=== PATIENT | male | born 1995 | race African-American/Black ===

== ENCOUNTER 2022-12-23 11:52 | Emergency (ER) | payer MEDICAID ==
[~2022-12-23] VITALS: Ht 175.3 cm; Wt 75.0 kg
[2022-12-23] MEDS ORDERED: KETOROLAC 60MG/2ML VIAL IM ONE (12:45)
[2022-12-23 12:58] VITALS: BP 130/98
[2022-12-23] MEDS ORDERED: CYCL10TA21 MT (13:06)
[2022-12-23] MEDS ORDERED: LIDO700A15 TP (13:06)
[2022-12-23] MEDS ORDERED: IBUP-2029 MT (13:06)
== END 2022-12-23 13:22 | disposition home or self-care (01) ==
LOC: ER 12:10
DX: M25.561 Pain in right knee (principal); V49.49XA Driver injured in collision with other motor vehicles in traffic accident, initial encounter; Y93.89 Activity, other specified; Y92.89 Other specified places as the place of occurrence of the external cause; Y99.8 Other external cause status; J45.909 Unspecified asthma, uncomplicated; Z79.899 Other long term (current) drug therapy
CPT/HCPCS: 96372; 99283; J1885; Z7610

== ENCOUNTER 2023-10-06 18:27 | Emergency (ER) | payer MEDICAID ==
[~2023-10-06] VITALS: Ht 177.8 cm; Wt 81.0 kg
[~2023-10-06 18:27] MED LIST: CYCL10TA21 MT; IBUP-2029 MT; LIDO700A15 TP
[2023-10-06 18:35] VITALS: O2SAT 100
[2023-10-06] MEDS ORDERED: FLUORESCEIN SODIUM 1MG/STRIP LEFTEYE ONE (19:45)
[2023-10-06] MEDS ORDERED: TETRACAINE 0.5% OPHTH DROPS 4ML LEFTEYE ONE (19:45)
[2023-10-06] MEDS ORDERED: ACETAMINOPHEN 325MG TABLET PO STA (19:49)
[2023-10-06 23:39] VITALS: BP 113/64; PULSE 75; RESP 20; TEMP 98.7
== END 2023-10-06 23:40 | disposition home or self-care (01) ==
LOC: ER 18:27
DX: S06.9X0A Unspecified intracranial injury without loss of consciousness, initial encounter (principal); J45.909 Unspecified asthma, uncomplicated; H11.32 Conjunctival hemorrhage, left eye; J06.9 Acute upper respiratory infection, unspecified; Z20.822 Contact with and (suspected) exposure to COVID-19; X58.XXXA Exposure to other specified factors, initial encounter; Y93.89 Activity, other specified; Y92.89 Other specified places as the place of occurrence of the external cause; Y99.8 Other external cause status
CPT/HCPCS: 99284; 70450; 87426; 87804 ×2; C9803